=== PATIENT | female | born 1990 | race Caucasian/White ===

== ENCOUNTER 2019-09-29 16:03 | Emergency (ER) | payer BC, MEDICAID ==
[~2019-09-29] VITALS: Ht 154.9 cm; Wt 56.7 kg
[2019-09-29 16:21] VITALS: BP 115/81
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
== END 2019-09-29 16:45 | disposition home or self-care (01) ==
LOC: ER 16:06 → EDSEX 16:06 → ER 16:45
DX: R55 Syncope and collapse (principal)